=== PATIENT | male | born 1935 | race African-American/Black ===

== ENCOUNTER → 2016-11-06 | Outpatient (CLI) | payer MEDICARE, OTHER ==
[2016-11-07 09:18] LABS: PROSTATE SPECIFIC ANTIGEN 7.9 ng/mL (0.0-4.0); PSA % FREE 26.8 % (.); PSA FREE 2.12 ng/mL
== END ==
LOC: OD 11:17
PROVIDERS: ATTEND Urology
DX: N40.1 Benign prostatic hyperplasia with lower urinary tract symptoms (principal); N41.1 Chronic prostatitis; J42 Unspecified chronic bronchitis
CPT/HCPCS: 36415; 84154